=== PATIENT | male | born 1960 | race African-American/Black ===

== ENCOUNTER → 2017-06-30 | Outpatient (CLI) | payer OTHER ==
[~2017-06-30] MED LIST: ASPIRIN81 M2 PO; IBUPROFEN 600600 M1 PO; MUCINEX TA600 MG/TA2 PO; NORCO 5-325 TA1 EACH PO; TESSALON PERLE100 MG PO; TOPROL XL50 MG PO; VENTOLIN HFA 1818 GM INH; ZOFRAN ODT4 MG PO; ZPAK PO
== END ==
LOC: MRI 08:15
DX: M19.011 Primary osteoarthritis, right shoulder (principal)

== ENCOUNTER 2017-07-10 05:57 | Day surgery (SDC) | payer OTHER ==
[~2017-07-10] VITALS: Ht 170.2 cm; Wt 85.7 kg
--- NOTE | ~2017-07-10 | EKG ---
[address] [address] ELECTROCARDIOGRAM REPORT Name: GRETA LI Room #: 150-4 [facility] M.R.#: [id number] Admission: 07/10/17 Attend Phys: Yash Beltre Discharge: Date of : 62 Report #: [id number] THIS REPORT FOR: //name// [facility] Test Date: 2017-07-10 Test Time: 07:12:42 Pat Name: GRETA LI Department: Room: 150 4 Gender: M Director Law Enforcement: CODI : 1960 Requested By: Yash Velarde Order Number: [id number] MD: Caleb Mercedes Measurements Intervals [place] Rate: 60 P: 51 CO: 188 QRS: -16 QRSD: 95 T: 7 QT: 419 QTc: 419 Interpretive Statements Sinus rhythm Borderline left axis deviation Compared to ECG 11/06/2013 14:19:01 No significant change was found Electronically Signed On 07-10-2017 8:28:13 CDT by Caleb Mercedes [email or web address] <ELECTRONICALLY SIGNED> By: Caleb Mercedes MD, [facility] 07/10/1728 1 1 Caleb Mercedes MD, [facility] /EPI
--- NOTE | ~2017-07-10 | O ---
[facility] [place] [address] OPERATIVE REPORT Name: GRETA LI Room #: 150-4 [facility] M.Sid.#: [id number] Admission: 07/10/17 Attend Phys: Yash Beltre Discharge: Date of : 62 Report #: [id number] THIS REPORT FOR: //name// CC: Yash Leslie [facility] DATE OF SERVICE: 07/10/2017 PREOPERATIVE DIAGNOSES: Right shoulder pain, long head of biceps tendon tear, acromioclavicular joint arthrosis. POSTOPERATIVE DIAGNOSES: Right shoulder long head of biceps tendon tear, impingement syndrome, acromioclavicular joint arthrosis, degenerative labral tear, glenoid chondromalacia, subacromial bursitis. PROCEDURE PERFORMED: Right shoulder arthroscopy, subacromial decompression, excision of distal clavicle, arthroscopic biceps tenodesis, extensive debridement. SURGEON: Yash Velarde MD INFUSION NURSE: Tanisha Holbrook PA-C ANESTHESIA: General with preoperative interscalene block. FLUIDS: 500 mL crystalloid. ESTIMATED BLOOD LOSS: Approximately 5 mL. DESCRIPTION OF PROCEDURE: After proper identification of the patient and operative site in preoperative holding area, the operative site was signed by myself. Prophylactic antibiotics given. The patient elected to receive an interscalene block after reviewing the risks, benefits, alternatives and potential complications with anesthesia. After satisfactory block, the patient was brought back to the operative suite after induction of satisfactory general endotracheal anesthesia. After induction of satisfactory general endotracheal anesthesia, the right and left shoulders were examined. They were stable throughout a full arc of motion comparable to the preoperative assessment. He was carefully positioned in the left lateral decubitus position. Clifford bag and extra roll were utilized to support the torso. The right shoulder was sterilely prepped and draped in the usual manner and placed in 10 pounds balanced arthroscopic suspension. Posterior portal was established and was insufflated with an arthroscopic pump set at 40 mmHg anterior portal. Anterior superior portal was then created using a spinal needle for localization. Examination of the glenohumeral joint revealed degenerative labral tearing of the anterior, superior and posterior superior quadrants. Frayed labrum was debrided with [facility] [address] [place] [address] OPERATIVE REPORT Name: GRETA LI Room #: 150-[address] [place] [address] M..#: [id number] Admission: 07/10/17 Attend Phys: Yash Beltre Discharge: Date of : 62 Report #: [id number] motorized shaver. There was evidence of long head of biceps tendon tear, evidence of his prior drill holes from his labral repair were noted. There was no note of the anchors. Remaining suture was removed. There were some degenerative chondral fibrillation and fraying of the more anterior superior and anterior inferior portion of the glenoid. This was partial thickness in nature and carefully debrided with motorized shaver. There was also some degenerative chondral wear on the humeral head noted more posteriorly and superiorly and with several small partial thickness chondral flaps that were carefully debrided. The upper border of the subscapularis was intact. The rotator cuff from the articular side was intact. The arthroscope was introduced in the subacromial space, mild fraying on the undersurface of the coracoacromial arch was noted. CA ligament was released but not resected off the anterolateral acromion and prominence to the acromion was removed using motorized bur. Approximately 3 mm of bone was resected. Acromioclavicular joint arthrosis was noted and a distal clavicle excision was performed using a motorized bur. Approximately 8-10 mm of bone was resected. Grasper could easily open 10 mm within the joint space following the distal clavicle excision. Care was taken not to leave a superior bony shell for rim of tissue while still preserving the capsular structures. At this point, an additional anterolateral portal was created over the bicipital groove. The lateral portion of the bicipital groove was carefully opened. Tendon stump had retracted, but it was visualized, pulled proximally and a whip stitch was applied using Scorpion. Using an Arthrex proximal biceps tenodesis button, this was applied to the tendons with stitch sutures. Drill hole was placed, button was securely seated under the cortex and with deep tendon held proximally and reduced. It was then tied in position. It had excellent purchase. Some remaining frayed portion of the tendon was then carefully debrided. The rotator cuff from the bursal side demonstrated no obvious tearing. Subacromial space was thoroughly irrigated with normal saline. The bursal tissue had been debrided for visualization purposes and some mild thickening was noted. Qualified airplane first officer was utilized throughout the entire procedure to aid in patient limb positioning, visualization with arthroscope, instrument suture passage as well as closure and sling application. The arthroscopic portals were closed with simple nylon stitches. Sterile dressing was applied. He will be immobilized in the sling and abduction pillow for 4 weeks postoperatively. By: [id number] Yash Velarde MD /libia
[2017-07-10 07:45] VITALS: BP 162/98
[2017-07-10 10:41] VITALS: BP 162/98
== END 2017-07-10 11:30 | disposition home or self-care (01) ==
LOC: TBA 05:57 → OR 05:57
DX: S46.111A Strain of muscle, fascia and tendon of long head of biceps, right arm, initial encounter (principal); S43.491A Other sprain of right shoulder joint, initial encounter; M19.011 Primary osteoarthritis, right shoulder; M75.41 Impingement syndrome of right shoulder; M94.211 Chondromalacia, right shoulder; I10 Essential (primary) hypertension; I48.91 Unspecified atrial fibrillation; M75.51 Bursitis of right shoulder; Z98.890 Other specified postprocedural states; Z79.899 Other long term (current) drug therapy; X58.XXXA Exposure to other specified factors, initial encounter; Y93.89 Activity, other specified; Y92.89 Other specified places as the place of occurrence of the external cause; Y99.8 Other external cause status
CPT/HCPCS: 50010; 50101; 50172; 50386; 50417; 50597; 50935; 50950; 51038; 51445; 51847; 53610; 54170; 55430; 56525; 56527; 56530; 62110; 62900; 70005